=== PATIENT | male | born 1935 | race Two or more races ===

== ENCOUNTER 2017-11-04 18:48 | Inpatient (IN) | payer OTHER ==
[~2017-11-04] VITALS: Ht 188 cm; Wt 90.8 kg
--- NOTE | 2017-11-04 18:55 | ED.ADGEN ---
Past History Past Medical History: CAD, Diabetes, Hypertension, Other Adult General Chief Complaint Chief Complaint ".. I had something happen about 4... today.. I an't been right since.. weak.. I took my to dialysis but I got back , I could not even get myself out of the car..".." [facility] said I need to come here...".. " I ve been really nauseated.. not feeling right in my chest since about 4 pm today..." HPI HPI Patient is a 81 year old male who presents with the above hx of near syncope, nausea and onset of marked weakness. Some epigastric chest discomfort. . Pt. states she normally follows at the [place] for his hypertension and diabetes. Patient states he continues to be weak all day and somewhat nauseated. He did take his to dialysis. He came back home today he was unable to get himself out of a car which caused histransferred here to [facility] for further evaluation. Patient does not check his sugars very often. the ward clerk report sugars currently about 100. Pts still nauseated.and marked generalized weakness. Pt. moves all ext. on request but legs very weak. Pt. could move himself to the bed. Review of Systems Review of Systems Constitutional: Denies fever or chills [] Eyes: Denies change in visual acuity, redness, or eye pain [] HENT: Denies nasal congestion or sore throat [] Respiratory: Denies cough or shortness of breath [] Cardiovascular: No additional information not addressed in HPI [] GI: Denies abdominal pain, nausea, vomiting, bloody stools or diarrhea [] : Denies dysuria or hematuria [] Musculoskeletal: Denies back pain or joint pain [] Integument: Denies rash or skin lesions [] Neurologic: Denies headache, focal weakness or sensory changes [] Endocrine: Denies polyuria or polydipsia [] All other systems were reviewed and found to be within normal limits, except as documented in this note. Family History Family History Non-contributory Current Medications Current Medications Current Medications Medications (Trade) Dose Ordered Sig/Maximo Start Time Stop Time Status Last Admin Dose Admin Aspirin (Children'S Aspirin) 324 mg 1X ONCE 11/04/17 19:30 11/04/17 19:31 DC 11/04/17 19:18 324 MG Enoxaparin Sodium (Lovenox 100mg Syringe) 100 mg BID 11/04/17 21:00 11/04/17 20:50 100 MG Ondansetron HCl (Zofran) 4 mg PRN Q4HRS PRN 11/04/17 20:15 11/05/17 20:14 Sodium Chloride 1,000 ml @ 100 mls/hr Q10H 11/04/17 19:30 11/05/17 05:29 DC 11/04/17 20:50 100 MLS/HR Allergies Allergies Allergies Coded Allergies Type Severity Reaction Last Updated Verified No Known Drug Allergies 11/04/17 No Physical Exam Physical Exam Constitutional: Well developed, well nourished, no acute distress, non-toxic appearance. [] HENT: Normocephalic, atraumatic, bilateral external ears normal, oropharynx moist, no oral exudates, nose normal. [] Eyes: PERRLA, EOMI, conjunctiva normal, no discharge. [] Neck: Normal range of motion, no tenderness, supple, no stridor. [] Cardiovascular:Heart rate regular rhythm, no murmur [] Lungs & Thorax: Bilateral breath sounds clear to auscultation [] Abdomen: Bowel sounds normal, soft, no tenderness, no masses, no pulsatile masses. [] Skin: Warm, dry, no erythema, no rash. [] Back: No tenderness, no CVA tenderness. [] Extremities: No tenderness, no cyanosis, no clubbing, ROM intact, no edema. [] Neurologic: Alert and oriented X 3, Moves all ext on request, some generalized weakness, no focal sensory function loss. , no gross focal deficits noted. [] Psychologic: Affect anxious, , judgement normal, mood normal. [] Current Patient Data Vital Signs Vital Signs Date Time Temp Pulse Resp B/P (MAP) Pulse Ox O2 Delivery O2 Flow Rate FiO2 11/04/17 19:27 98.3 14 96 Lab Results Laboratory Tests Test 11/04/17 19:15 White Blood Count 5.7 x10^3/uL (4.0-11.0) Red Blood Count 4.42 x10^6/uL (4.30-5.70) Hemoglobin 13.8 g/dL (13.0-17.5) Hematocrit 41.3 % (39.0-53.0) Mean Corpuscular Volume 93 fL (79-100) Mean Corpuscular Hemoglobin 31 pg (25-35) Mean Corpuscular Hemoglobin Concent 33 g/dL (31-37) Red Cell Distribution Width 14.3 % (11.5-14.5) Platelet Count 177 x10^3/uL (140-400) Neutrophils (%) (Auto) 72 % (31-73) Lymphocytes (%) (Auto) 17 % (24-48) L Monocytes (%) (Auto) 10 % (0-9) H Eosinophils (%) (Auto) 1 % (0-3) Basophils (%) (Auto) 1 % (0-3) Neutrophils # (Auto) 4.1 x10^3uL (1.8-7.7) Lymphocytes # (Auto) 1.0 x10^3/uL (1.0-4.8) Monocytes # (Auto) 0.6 x10^3/uL (0.0-1.1) Eosinophils # (Auto) 0.0 x10^3/uL (0.0-0.7) Basophils # (Auto) 0.0 x10^3/uL (0.0-0.2) Prothrombin Time 10.5 SEC (9.4-11.4) Prothrombin Time INR 1.1 (0.9-1.1) PTT 23 SEC (23-33) D-Dimer (Nanette) 0.58 mg/L (0.00-0.50) H Sodium Level 142 mmol/L (136-145) Potassium Level 3.9 mmol/L (3.5-5.1) Chloride Level 103 mmol/L (98-107) Carbon Dioxide Level 27 mmol/L (21-32) Anion Gap 12 (6-14) Blood Urea Nitrogen 15 mg/dL (8-26) Creatinine 1.5 mg/dL (0.7-1.3) H Estimated GFR (Cockcroft-Gault) 44.9 Glucose Level 94 mg/dL (70-99) Calcium Level 9.6 mg/dL (8.5-10.1) Magnesium Level 1.8 mg/dL (1.8-2.4) Total Bilirubin 0.4 mg/dL (0.2-1.0) Direct Bilirubin 0.1 mg/dL (0.0-0.2) Aspartate Amino Transferase (AST) 16 U/L (15-37) Alanine Aminotransferase (ALT) 13 U/L (16-63) L Alkaline Phosphatase 77 U/L (46-116) Creatine Kinase 87 U/L (39-308) Creatine Kinase MB (Mass) 1.2 ng/mL (0.0-3.6) Creatine Kinase MB Relative Index 1.4 % (0-4) Troponin I Quantitative < 0.017 ng/mL (0-0.055) XS-Qnc-I-Type Natriuretic Peptide 171 pg/mL (0-449) Total Protein 7.1 g/dL (6.4-8.2) Albumin 3.6 g/dL (3.4-5.0) Lipase 198 U/L (73-393) EKG EKG My interpretation of EKG shows a sinus rhythm at 66 bpm. Has leftward axis. And a fascicular block. Some nonspecific T-wave changes. But no findings acute STEMI of contralateral changes.[] Radiology/Procedures Radiology/Procedures My interpretation of chest x-ray shows no acute cardiopulmonary findings. Arthritic changes. My interpretation CT of head shows extensive white matter disease. Area suggestive of chronic infarcts left frontal lobe and left abdomen area. Has generalized cerebral atrophy.[] See formal report when available Course & Med Decision Making Course & Med Decision Making Pertinent Labs and Imaging studies reviewed. (See chart for details) Admitted to Dr Sandoval- for further eval. and tx. -cardiology and neurology consults. [] Final Impression Final Impression 1. Nausea[] 2. Weakness 3. Chest Pain 4. DM Hx 5. Elev. D-dimer 6. Elev. Creat. 7. Dizzy/ Near Syncope Dragon Disclaimer Dragon Disclaimer This electronic medical record was generated, in whole or in part, using a voice recognition dictation system. FRIEDA GERMAN MD Nov 04, 2017 18:55
[2017-11-04] MEDS: IV NORMAL SALINE 1,000ML 1,000 ML IV SCH ×2 (19:17→20:50)
[2017-11-04] MEDS ORDERED: ASPIRIN 81 MG TAB.CHEW PO ONE (19:30)
[2017-11-04 19:38] LABS: BASO % 1 % (0-3); EOS % 1 % (0-3); HEMATOCRIT 41.3 % (39.0-53.0); HEMOGLOBIN 13.8 g/dL (13.0-17.5); LYMPH % 17 % (24-48); MEAN CORPUSCULAR HEMOGLOBIN 31 pg (25-35); MEAN CORPUSCULAR HGB CONC 33 g/dL (31-37); MEAN CORPUSCULAR VOLUME 93 fL (79-100); MONO # 0.6 x10^3/uL (0.0-1.1); MONO % 10 % (0-9); NEUT # 4.1 x10^3uL (1.8-7.7); NEUT % 72 % (31-73); PLATELET COUNT 177 x10^3/uL (140-400); RED BLOOD COUNT 4.42 x10^6/uL (4.30-5.70); RED CELL DISTRIBUTION WIDTH 14.3 % (11.5-14.5); WHITE BLOOD COUNT 5.7 x10^3/uL (4.0-11.0)
--- NOTE | 2017-11-04 19:57 | RAD ---
EXAM: Chest, single view. HISTORY: Weakness. COMPARISON: None. FINDINGS: A frontal view of the chest is obtained. There is no infiltrate, pleural effusion or pneumothorax. There is a prominent cardiac silhouette, a component of which is due to portable technique. IMPRESSION: No acute pulmonary finding. Electronically signed by: Xenia Love MD (11/04/2017 7:54 PM) [facility]
--- NOTE | 2017-11-04 19:57 | RAD ---
EXAM: Head CT without contrast. HISTORY: Weakness. Near-syncope. TECHNIQUE: Computed tomographic images of the head were obtained without contrast. *One or more of the following individualized dose reduction techniques were utilized for this examination: 1. Automated exposure control. 2. Adjustment of the mA and/or kV according to patient size. 3. Use of iterative reconstruction technique. COMPARISON: None. FINDINGS: There is no acute or subacute hemorrhage. There is no mass effect or midline shift. There is no hydrocephalus. There is ventricular enlargement due to cerebral atrophy. There is extensive hypodensity throughout the cerebral white matter, likely due to chronic small vessel disease. There may be chronic infarcts within the posterior left frontal lobe and left putamen. There are small scalp nodules and calcifications, a component of which may be due to prior scarring. No suspicious osseous lesion is seen. The mastoid air cells and visualized paranasal sinuses are unremarkable. IMPRESSION: 1. Extensive hypodensity throughout the cerebral white matter, likely due to chronic small vessel disease. 2. 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 3. Cerebral atrophy. 4. Note is made that MRI is more sensitive for acute infarction. Electronically signed by: Xenia Love MD (11/04/2017 7:53 PM) [facility]
[2017-11-04 20:13] LABS: ALBUMIN 3.6 g/dL (3.4-5.0); CALCIUM 9.6 mg/dL (8.5-10.1); CREATININE 1.5 mg/dL (0.7-1.3); DIRECT BILIRUBIN 0.1 mg/dL (0.0-0.2); GFR 44.9; MAGNESIUM 1.8 mg/dL (1.8-2.4); POTASSIUM 3.9 mmol/L (3.5-5.1); TOTAL BILIRUBIN 0.4 mg/dL (0.2-1.0); TOTAL PROTEIN 7.1 g/dL (6.4-8.2)
[2017-11-04] MEDS ORDERED: ONDANSETRON PF 4 MG/2 ML VIAL. IV PRN (20:15)
[2017-11-04] MEDS: ENOXAPARIN ** NOTE DOSE ** SYRINGE SQ SCH (20:50)
[2017-11-04] MEDS ORDERED: METF500T5 PO (21:18)
[2017-11-04 21:58] VITALS: BP 152/73
[2017-11-04 22:13] LABS: BARBITURATES NEG (NEG); BENZODIAZEPINES NEG (NEG); CANNABINOIDS NEG (NEG); COCAINE NEG (NEG); METHADONE NEG (NEG); OPIATES NEG (NEG); PHENCYCLIDINE NEG (NEG)
[2017-11-04 22:15] LABS: BILIRUBIN,URINE NEG (NEG); CLARITY,URINE HAZY; COLOR,URINE AMBER; GLUCOSE,URINE NEG (NEG); NITRITE,URINE NEG (NEG); UROBILINOGEN,URINE 0.2 mg/dL (0.2 mg/dL)
[2017-11-04 22:16] LABS: BACTERIA,URINE FEW /HPF (0-FEW); HYALINE CASTS, URINE FEW /HPF; RBC,URINE OCC /HPF (0-2); SQUAMOUS EPITHELIAL CELL,UR FEW /LPF
[2017-11-04 22:17] LABS: AMPHETAMINE/METHAMPHETAMINE NEG (NEG)
--- NOTE | 2017-11-04 22:22 | EKG ---
[address] [address] Test Date: 2017-11-04 Test Time: 18:54:46 Pat Name: CACHORRO BANDA Department: Room: [facility]04 1 Gender: M Pediatric Dermatologist: : 1935 Requested By: FRIEDA GERMAN Order Number: [id number] Reading MD: Lee Mota MD Measurements Intervals [place] Rate: 66 P: 0 UT: 144 QRS: -34 QRSD: 90 T: 62 QT: 414 QTc: 436 Interpretive Statements SINUS RHYTHM LAFB NON-SPECIFIC ST/T CHANGES Electronically Signed On 11-07-2017 11:18:18 CDT by Lee Mota MD
[2017-11-05 03:00] VITALS: BP 133/58
[2017-11-05 06:00] VITALS: BP 132/54
[2017-11-05 06:26] LABS: BASO % 1 % (0-3); EOS # 0.1 x10^3/uL (0.0-0.7); EOS % 2 % (0-3); HEMATOCRIT 36.7 % (39.0-53.0); HEMOGLOBIN 12.2 g/dL (13.0-17.5); LYMPH # 1.7 x10^3/uL (1.0-4.8); LYMPH % 36 % (24-48); MEAN CORPUSCULAR HEMOGLOBIN 31 pg (25-35); MEAN CORPUSCULAR HGB CONC 33 g/dL (31-37); MEAN CORPUSCULAR VOLUME 94 fL (79-100); MONO # 0.5 x10^3/uL (0.0-1.1); MONO % 11 % (0-9); NEUT # 2.5 x10^3uL (1.8-7.7); NEUT % 51 % (31-73); PLATELET COUNT 144 x10^3/uL (140-400); RED CELL DISTRIBUTION WIDTH 14.7 % (11.5-14.5); WHITE BLOOD COUNT 4.9 x10^3/uL (4.0-11.0)
[2017-11-05 06:35] LABS: CALCIUM 8.3 mg/dL (8.5-10.1); CREATININE 1.3 mg/dL (0.7-1.3); POTASSIUM 3.6 mmol/L (3.5-5.1)
[2017-11-05 08:02] VITALS: BP 159/68
[2017-11-05] MEDS: ENOXAPARIN ** NOTE DOSE ** SYRINGE SQ SCH (08:49)
[2017-11-05] MEDS ORDERED: ASPIRIN 81 MG TAB.CHEW PO SCH (09:00)
--- NOTE | 2017-11-05 09:11 | PDOC ---
PROVIDER NOTE PROVIDER NOTE PROVIDER NOTE CARDIOLOGY CONSULT NOTE: REASON FOR CONSULTATION: Bradycardia/weakness HPI: 81 y.o man without significant cardiac history presenting for weakness. Took his to HD and couldn't get out of the car. Denied any associated chest pain , dyspnea, orthopnea or PND. No syncope or palpitations. No prior cardiac issues. He has been having more falls recently. CT head in ER revealed significant microvascular insults that were old. PMhx DM Sochx: . No alcohol, tob or illicits. ALL: NKDA MedS: Metformin ROS: Negative for 12/24 systems reviewed. Constitutional: Well developed, well nourished, no acute distress, non-toxic appearance. [] HENT: Normocephalic, atraumatic, bilateral external ears normal, oropharynx moist, no oral exudates, nose normal. [] Eyes: PERRLA, EOMI, conjunctiva normal, no discharge. [] Neck: Normal range of motion, no tenderness, supple, no stridor. [] Cardiovascular:Heart rate regular rhythm, no murmur [] Lungs & Thorax: Bilateral breath sounds clear to auscultation [] Abdomen: Bowel sounds normal, soft, no tenderness, no masses, no pulsatile masses. [] Skin: Warm, dry, no erythema, no rash. [] Back: No tenderness, no CVA tenderness. [] Extremities: No tenderness, no cyanosis, no clubbing, ROM intact, no edema. [] Neurologic: Alert and oriented X 3, normal motor function, normal sensory function, no focal deficits noted. [] Psychologic: Affect normal, judgement normal, mood normal. [] LABS REVIEWED EKG with SR. Trop neg x 2. Impression: 1. Asymptomatic sinus irma 2. HTN RECS: 1. Ambulate and if HR improves, no further testing needed. 2. If no obvious neurology findings, then could consider echo tomorrow. Thanks JARVIS AGARWAL MD Nov 05, 2017 09:10
[2017-11-05 10:07] LABS: THYROID STIM HORMONE (TSH) 3.234 uIU/mL (0.358-3.740)
[2017-11-05 11:30] VITALS: BP 152/78
--- NOTE | 2017-11-05 13:12 | RAD ---
EXAM: Carotid Doppler sonogram. HISTORY: Transient ischemic attack. TECHNIQUE: Jenkins scale and color Doppler sonographic evaluation of the neck with spectral waveform analysis was performed and static images are submitted for review. FINDINGS: The peak systolic velocity within the right common carotid artery is 66 cm/sec. The peak systolic velocity within the right internal carotid artery is 50 cm/sec and the end diastolic velocity within the right internal carotid artery is 11 cm/sec. The right ICA/CCA ratio is 0.76. The peak systolic velocity within the left common carotid artery is 83 cm/sec. The peak systolic velocity within the left internal carotid artery is 54 cm/sec and the end diastolic velocity within the left internal carotid artery is 30 cm/sec. The left ICA/CCA ratio is 0.84. There is normal antegrade flow within both vertebral arteries. IMPRESSION: No Doppler evidence of hemodynamically significant stenosis within the carotid or vertebral arteries. PQRS Compliance Statement - Stenosis calculations for CT, MR and conventional angiography are based upon measurement of the distal ICA diameter in accordance with the NASCET methodology. Stenosis calculations for carotid ultrasound studies are derived from validated velocity criteria which are known to correlate with the NASCET methodology. Electronically signed by: Xenia Love MD (11/05/2017 1:09 PM) [facility]
--- NOTE | 2017-11-05 13:13 | RAD ---
EXAM: Bilateral lower extremity venous Doppler sonogram. HISTORY: Elevated d-dimer. Swelling. TECHNIQUE: Jenkins scale and color Doppler sonographic evaluation of the bilateral lower extremity veins with spectral waveform analysis was performed. FINDINGS: There is normal color flow, normal compressibility and there are normal spectral waveforms in the common femoral, superficial femoral, popliteal, posterior tibial and greater saphenous veins. IMPRESSION: No Doppler evidence of lower extremity venous thrombosis. Electronically signed by: Xenia Love MD (11/05/2017 1:11 PM) [facility]
--- NOTE | 2017-11-05 13:50 | SSS ---
ADMIT DATE: 11/05/2017 HISTORY OF PRESENT ILLNESS: The patient is an 81-year-old -Polish male patient, who presented with the complaint of weakness. He apparently took his to dialysis and got back and could not get himself out from the car. [facility] has not opened and he was transferred to our Emergency Room. He has been nauseated, not feeling right in his chest since around 4:00 in the afternoon. He did also complained of near syncope, nausea and onset of marked weakness, some epigastric and chest discomfort. He stated that he normally follows at the [place] for his [facility] and diabetes. However, he continues to be weak all day and somewhat nauseated. He was unable to get himself out of the car and therefore he was transferred to [facility] Emergency Room for further evaluation. His blood sugar per offbearer sewer pipe report about 100 mg/dL. By the time he arrived to the Emergency Room, he still nauseated with marked generalized weakness; however, was able to move all his extremities without difficulty and was able to move himself in the bed. He was extensively investigated in the Emergency Room. He has had lab work and imaging studies. He was found to be somewhat dehydrated. His creatinine was slightly high at 1.5 and has had first set of cardiac enzyme was normal and the patient was admitted for further evaluation and treatment. We did consult the neurologist as well as the primary care sales representative. PAST MEDICAL HISTORY: Significant for type 2 diabetes, hypertension, osteoarthritis, benign prostatic hypertrophy and prostate cancer. PAST SURGICAL HISTORY: Significant for right total knee arthroplasty. ALLERGIES: He has no known drug allergies. MEDICATIONS: Per his report is metformin and lisinopril. FAMILY HISTORY: He has 5 brothers and 2 sisters, all older and all . His father in his 70s because of the cerebrovascular accident. Mother at the age of 70. However, he does not know the cause of her . SOCIAL HISTORY: He is , has 2 sons. He smokes pipes; however, he used to smoke cigars before. 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 REVIEW OF SYSTEMS: The patient has lazy eye and has occasional complaint of diplopia, but denied any glaucoma or macular degeneration. Denied any earache, tinnitus or sensorineural deafness. Denied any nosebleeds, stuffy nose or postnasal drip. Denied any sore throat, sore tongue, toothache, hoarseness of voice or difficulty swallowing. Denied any nausea, vomiting, diarrhea or constipation, hematemesis, melena or hematochezia. Denied any dysuria, frequency or hematuria. Denied any chest pain, shortness of breath, orthopnea or paroxysmal nocturnal dyspnea. Denied any cough, phlegm or hemoptysis. Denied any chills, rigors, or fever. Denied any dizziness, lightheadedness, or vertigo. PHYSICAL EXAMINATION: GENERAL: On examining him on arrival to the Emergency Room, he looked well and was clearly in no apparent respiratory distress. VITAL SIGNS: His heart rate was 58, blood pressure 152/73, temperature was 98.3, respiratory rate was 18 and oxygen saturation was 98% on room air. HEAD, EYES, EARS, NOSE AND THROAT: Showed normocephalic, atraumatic. NECK: Supple. HEART: Showed normal first and second heart sounds with no gallop, rub or murmur. CHEST: Clear to auscultation. No crepitation or rhonchi. ABDOMEN: Distended, soft, nontender. NEUROLOGIC: He was awake, alert, responding appropriately. He was able to move his extremities without difficulty. INITIAL LABORATORY DATA: Showed serum sodium of 142, potassium 3.9, chloride 103, bicarbonate 27, anion gap of 12, BUN 15, creatinine 1.5, estimated GFR was 44 mL per minute. His glucose 194, calcium was 9.6, magnesium was 1.8. Total bilirubin, AST, ALT, alkaline phosphatase were normal. Troponin was less than 0.017. His lipase was 198. His white cell count was 5700, hemoglobin 13.8, hematocrit 41, MCV 93, and platelet count of 177,000. His prothrombin time was 10.5, INR of 1.1, aPTT was 23 and D-dimer was 0.58. Urinalysis was essentially unremarkable and toxic screen was negative. His CT scan of the head showed extensive hypodensity throughout the cerebral white matter, likely due to chronic small vessel disease as suspected chronic infarct within the posterior left frontal lobe and left putamen, cerebral atrophy. His chest x-ray showed there is no infiltrate, pleural effusion, or pneumothorax. There is a prominent cardiac silhouette a component of which is due to portable technique. ASSESSMENT AND PLAN: The patient was seen by Dr. Mota and he basically did not recommend any further cardiac workup as the patient has asymptomatic sinus bradycardia and has hypertension; however, he is noncompliant. He was seen by Dr. De Leon, who recommended that the patient can be discharged once his venous Doppler ultrasound and carotid Doppler was done. When I saw him this afternoon, he looked well and was clearly in no apparent respiratory distress. He was awake, alert, was able to walk with standby assist and when I examined him this afternoon, he was somewhat pale, but no jaundice, cyanosis, or thyromegaly. No jugular venous distension. No limb edema. His heart rate was 56, blood pressure 152/78, temperature was 97.5, respiratory rate 24, and oxygen saturation was 96%. The rest of clinical exam is unremarkable. His lab work this afternoon today showed a white cell count 4900, hemoglobin 12, hematocrit 36, MCV 94 and platelet count of 144,000. His serum sodium 141, potassium 3.6, chloride 106, bicarbonate 29, anion gap of 6, BUN 16, creatinine 1.3, estimated GFR was 53 mL per minute, his glucose 122, calcium was 8.3. His serum triglycerides were 122. Total cholesterol 161, LDL was 90, VLDL was 24. HDL cholesterol was 47 and the ratio was 3. His TSH was 3.234. IMPRESSION: In summary, this is an 81-year-old -Polish male patient, who came with marked weakness. He said that he drank beer, probably was dehydrated. All his lab work seems to be within acceptable range. He was seen by the primary care sales representative as well as neurologist and both recommended that the patient can be safely discharged. JOHAN FLOWERS MD DR: MICHELLE/jim JOB#: [id number] / [id number]
--- NOTE | 2017-11-06 01:19 | CONS ---
DATE OF CONSULTATION: 11/05/2017 NEUROLOGY CONSULTATION NOTE REFERRING PHYSICIAN: Dr. Sandoval. REASON FOR CONSULTATION: Generalized weakness and frequent falls. HISTORY OF PRESENT ILLNESS: This is an 81-year-old right-handed -Mexican male, who was admitted through Emergency Room after he presented with 1-day history of generalized weakness and tendency to fall. According to the patient, he was overheated yesterday after he took his to hemodialysis. He felt weird and had generalized weakness. He was somewhat dizzy and had difficulty to stand. He denies chest pain, shortness of breath or palpitations. However, he was somewhat nauseated. The patient stated his leg was very weak, but he was able to move in the Emergency Room. At the scene, his blood sugar was 100. Initial nonenhanced head CT scan revealed evidence of extensive small vessel ischemic changes and possible old left frontal lobe and putamen infarcts. Currently, he denies headaches or any new medical or neurological complaints. The patient was seen by Cardiology and there are no further recommendations from a cardiac standpoint. PAST MEDICAL HISTORY: Significant for diabetes mellitus, syncope, hypertension, and osteoarthritis. PAST SURGICAL HISTORY: Significant for right knee replacement. CURRENT HOME MEDICATIONS: Metformin 500 mg daily. In the hospital, the patient was given aspirin and placed on Lovenox 100 mg every day along with Zofran on p.r.n. basis. FAMILY HISTORY: Noncontributory. SOCIAL HISTORY: The patient is . He denies smoking, but he drinks alcohol occasionally. REVIEW OF SYSTEMS: A 10-point review of systems was performed and as mentioned above in history of present illness, otherwise unremarkable. PHYSICAL EXAMINATION: GENERAL: A well-developed and well-nourished male, not in acute distress. He weighs 200 pounds. VITAL SIGNS: Blood pressure is 152/78, respiratory rate 24, pulse is 56-60, and oxygen saturation 96% on room air. HEENT: Normocephalic and atraumatic, otherwise unremarkable. NECK: Supple. Negative for carotid bruit, lymphadenopathy or thyromegaly. LUNGS: Clear to A and P. CARDIOVASCULAR: Regular rate and rhythm, normal S1 and S2. There is no S3, S4, or murmur. ABDOMEN: Soft. Bowel sounds positive. EXTREMITIES: Negative for cyanosis, clubbing or edema. NEUROLOGIC: Mental status: The patient is alert and oriented x 3. The speech is fluent. There is no language dysfunction. Memory, judgment, and abstracting thinking are normal. The patient denies hallucination or delusion. CRANIAL NERVES: Visual jenkins are full. The pupils are reactive to light and accommodation. The extraocular movements are intact. There is no nystagmus. There is no facial motor or sensory deficit. Hearing is intact bilaterally. The palate is elevated symmetrically. Sternocleidomastoid muscles are powerful bilaterally. The patient shrugs his shoulders symmetrically, protrudes his tongue in the midline without fasciculation or atrophy. MOTOR: No focal muscle bulk was seen. The tone is normal. The strength is 5/5 throughout. SENSORY: Examination revealed normal pinprick, light touch, and vibratory and position senses. Deep tendon reflexes were symmetric and active with absent Achilles muscles bilaterally. Gait and coordination are normal. LABORATORY DATA: CBC revealed white blood cells of 4900, hemoglobin 12.2, hematocrit 36.7, and platelet count 144,000. Chemistry revealed sodium of 141, potassium 3.6, chloride 106, CO2 of 29, BUN 16, creatinine 1.3, glucose 122, and calcium 8.3. Troponin level is normal and cardiac enzymes are normal. Lipid profile is normal along with lipase and TSH. Urinalysis is negative for urinary tract infection, and urine drug screen is negative as well. Coagulation: D-dimer is high at 0.58. DIAGNOSTIC DATA: Initial nonenhanced CT scan as described above in history of present illness. Chest x-ray revealed no evidence of acute cardiopulmonary process. Carotid Doppler study and lower extremity ultrasound has been done, but the results are pending. IMPRESSION: 1. 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 2. Elevated D-dimer. Rule out deep venous thrombosis, clinically has no evidence of that. 3. Multiple medical problems include diabetes mellitus, hypertension, and intermittent bradycardia. RECOMMENDATIONS: Continue with current management. Physical therapy evaluation. Await for carotid Doppler and venous ultrasound of the lower extremities. Continue with current home medications. M Mack KLINE MD DR: ARABELLA/jim JOB#: [id number] / [id number]
== END 2017-11-05 14:55 | disposition home or self-care (01) | DRG 641 ==
LOC: ER 18:48 → 1 SOUTH 21:09 → ICU 21:53
PROVIDERS: ADMIT Internal Medicine; ATTEND Internal Medicine
DX: E86.0 Dehydration (principal); E11.9 Type 2 diabetes mellitus without complications; F17.200 Nicotine dependence, unspecified, uncomplicated; I10 Essential (primary) hypertension; I25.10 Atherosclerotic heart disease of native coronary artery without angina pectoris; N40.0 Benign prostatic hyperplasia without lower urinary tract symptoms; R29.6 Repeated falls; R79.1 Abnormal coagulation profile; Z82.3 Family history of stroke; Z85.46 Personal history of malignant neoplasm of prostate; Z91.19 Patient's noncompliance with other medical treatment and regimen; Z96.651 Presence of right artificial knee joint; M19.90 Unspecified osteoarthritis, unspecified site; Z79.84 Long term (current) use of oral hypoglycemic drugs; R00.1 Bradycardia, unspecified
CPT/HCPCS: 36415; 70450; 71045; 80048; 80061; 80076; 80307; 81001; 82553; 83690; 83735; 83880; 84443; 84484; 85025; 85379; 85610; 85730; 87641; 93005; 93880; 93970; 96360; 96361; J1650; 99285-25; G0479; J7030